=== PATIENT | male | born 1960 | race Caucasian/White ===

== ENCOUNTER 2017-11-09 13:24 | Emergency (ER) | payer MEDICARE, BC ==
[2017-11-09] MEDS ORDERED: CLINDAMYCIN 600MG/50ML PREMIX 600 MG/50 ML BAG IVPB ONE (14:02)
--- NOTE | 2017-11-09 14:07 | Emergency Department Record ---
History of Present Illness - General Chief complaint: Extremity Problem Stated complaint: RT LOWER LEG INFECTION,BLISTERS, RED,SWOLLEN Time Seen by Provider: 11/09/17 14:02 Source: Patient Mode of Arrival: Ambulatory Limitations: No limitations - History of Present Illness Initial comments: 57 yo female presents to ED for evaluation of swelling and redness to the RLE. Patient reports history of DVT, reports that he does not take anticoagulation medications currently. Patient denies fevers, chills, or recent illness. MD Complaint: Extremity swelling Onset/Timin -: Days(s) Location: Right History of Same: Yes Severity scale (1-10): 1 Quality: Aching Consistency: Constant Improves with: Nothing Worsens with: Nothing Associated Symptoms: Rash - Related Data Home Medications Medication Instructions Recorded Confirmed Last Taken Fenofibrate Nanocrystallized 145 mg PO DAILY 11/09/17 11/09/17 1 Day Ago [Fenofibrate] ~11/08/17 Meloxicam [Mobic] 15 mg PO DAILY 11/09/17 11/09/17 1 Day Ago ~11/08/17 Previous Rx's Medication Instructions Recorded Clindamycin HCl 300 mg PO Q6H #40 capsule 11/09/17 Allergies Allergy/AdvReac Type Severity Reaction Status Date / Time Penicillins Allergy HIVES Verified 11/09/17 13:45 Tetanus Vaccines and Toxoid Allergy ANAPHYLAXIS Verified 11/09/17 13:45 [Tetanus Vaccines & Toxoid] Travel Screening - Travel/Exposure Within Last 30 Days Have you traveled within the last 30 days?: No - Travel/Exposure Within Last Year Have you traveled outside the [place] in the last year?: No - Additonal Travel Details Have you been exposed to anyone with a communicable illness?: No - Travel Symptoms Symptom Screening: None Review of Systems Constitutional: Denies: Chills, Fever, Malaise, Night sweats Eyes: Denies: Eye discharge, Eye pain ENT: Denies: Congestion, Ear pain, Epistaxis Respiratory: Denies: Cough, Dyspnea Cardiovascular: Denies: Chest pain, Dyspnea on exertion Endocrine: Denies: Fatigue, Heat or cold intolerance Gastrointestinal: Denies: Abdominal pain, Nausea, Vomiting Genitourinary: Denies: Incontinence, Retention Musculoskeletal: Reports: Myalgia. Denies: Arthralgia, Back pain, Gout, Joint swelling Skin: Reports: Rash. Denies: Bruising, Change in color, Change in hair/nails Neurological: Denies: Abnormal gait, Confusion, Headache, Seizure Psychiatric: Denies: Anxiety Hematological/Lymphatic: Reports: Blood Clots. Denies: Anemia Past Medical History - SOCIAL HISTORY Smoking Status: Current every day smoker Alcohol Use: None Drug Use: None - RESPIRATORY Hx Respiratory Disorders: Yes Hx Sleep Apnea: Yes Hx of CPAP: Yes - CARDIOVASCULAR Hx Cardio Disorders: Yes Hx Chest Pain: Yes (heart cath) Hx Deep Vein Thrombosis: Yes (hx of 2 occurences) Hx Hypertension: Yes Comment:: high cholesterol - NEURO Hx Neuro Disorders: Yes Hx Seizures: Yes ("tremors") - GI Hx GI Disorders: Yes Hx Reflux: Yes Hx Irritable Bowel: Yes - Hx Genitourinary Disorders: No - ENDOCRINE Hx Endocrine Disorders: No - MUSCULOSKELETAL Hx Musculoskeletal Disorders: Yes Hx Arthritis: Yes Hx Back Injury: Yes - PSYCH Hx Psych Problems: No - HEMATOLOGY/ONCOLOGY Hx Hematology/Oncology Disorders: No Family Medical History Any Significant Family History?: Yes Hx Alcohol Use: Father, Grandparents Hx Cancer: Father, Brother/Sister Hx Diabetes: Father, Brother/Sister Hx Heart Disease: Grandparents Hx HTN: Father, Mother, Brother/Sister Hx Kidney Disease: Mother, Brother/Sister Hx Liver Disease: Father Physical Exam - General General Appearance: Alert, Oriented x3, Cooperative Limitations: No limitations - Head Head exam: Atraumatic, Normocephalic, Normal inspection Head exam detail: negative: Abrasion, Contusion, Lay's sign, General tenderness, Hematoma, Laceration - Eye Eye exam: Normal appearance. negative: Conjunctival injection, Periorbital swelling, Periorbital tenderness, Scleral icterus - ENT Ear exam: negative: Auricular hematoma, Auricular trauma Nasal Exam: negative: Active bleeding, Discharge, Dried blood, Foreign body Mouth exam: negative: Drooling, Laceration, Muffled voice, Tongue elevation - Neck Neck exam: Normal inspection. negative: Meningismus, Tenderness - Respiratory Respiratory exam: Normal lung sounds bilaterally. negative: Rales, Respiratory distress, Rhonchi, Stridor - Cardiovascular Cardiovascular Exam: Regular rate, Normal rhythm, Normal heart sounds Peripheral Pulses: 3+: Dorsalis Pedis (R) - GI/Abdominal GI/Abdominal exam: Soft. negative: Rebound, Rigid, Tenderness - Rectal Rectal exam: Deferred - exam: Deferred - Extremities Extremities exam: Tenderness, Other (Diffuse erythema from the ankle to distal thigh is present with edema present, warm to touch). negative: Calf tenderness , Pedal edema - Back Back exam: Denies: CVA tenderness (R), CVA tenderness (L) - Neurological Neurological exam: Alert, Normal gait, Oriented X3 - Psychiatric Psychiatric exam: Normal affect, Normal mood - Skin Skin exam: Erythema, Rash Type of lesion: Rash. negative: abrasion Distribution of rash: RLE Description of rash: Erythematous Course Vital Signs 11/09/17 13:37 Temperature 98.5 F Pulse Rate 64 Respiratory 16 Rate Blood Pressure 148/70 Pulse Ox 95 - Reevaluation(s) Reevaluation #1: 11/09/17 15:11 Labs reviewed, D-Dimer elevated at 0.77, labs are otherwise grossly unremarkable for an acute process. Medical Decision Making - Lab Data Result diagrams: 11/09/17 14:10 11/09/17 14:10 Disposition Disposition: Transfer Clinical Impression: Cellulitis Qualifiers: Site of cellulitis: extremity Site of cellulitis of extremity: lower extremity Laterality: right Qualified Code(s): L03.115 - Cellulitis of right lower limb Disposition: Home, Self-Care Transfer To: [facility] Reason For Transfer: Doppler to exclude DVT Accepting Physician: Jasson Time Discussed w/Accepting Physician: 15:20 Condition: (2) Stable Prescriptions: Clindamycin HCl 300 mg PO Q6H #40 capsule Forms: Patient Portal Access Time of Disposition: 15:21 Quality - Quality Measures Quality Measures: N/A - Blood Pressure Screening Does Patient Have Any of the Following: Active Dx of HTN Blood Pressure Classification: Hypertensive Reading Systolic Measurement: 148 Diastolic Measurement: 70 Screening for High Blood Pressure: Patient Exclusion, Hx of HTN [G9744] First Hypertensive Follow-up Interventions: Referral to alternative/primary care provider.
[2017-11-09] MEDS ORDERED: 0.9 % SODIUM CHLORIDE 1000ML 1,000 ML IV SCH (14:15)
[2017-11-09 14:24] LABS: BASO % 0.8 % (0-6); EOS % 7.4 % (0-6); GRAN % 56.1 % (47-80); HEMATOCRIT 44.9 % (42.0-52.0); HEMOGLOBIN 15.1 gm/dl (14.0-18.0); LYMPH % 27.9 % (16-45); MEAN CELL VOLUME 90.5 fl (81-97); MEAN CORPUSCULAR HEMOGLOBIN 30.4 pg (27-33); MEAN CORPUSCULAR HGB CONC 33.6 g/dl (32-36); MEAN PLATELET VOLUME 10.7 fl (7.4-10.4); MONO % 7.8 % (0-9); PLATELET COUNT 192 K/uL (130-400); RED BLOOD COUNT 4.96 M/uL (4.40-5.70); WHITE BLOOD COUNT W/O DIFF 4.9 K/uL (4.2-12.2)
[2017-11-09 14:37] LABS: BLOOD UREA NITROGEN 16 mg/dL (6-20); EST GLOMERULAR FILTRATION RATE > 60 mL/min
[2017-11-09 14:38] LABS: TOTAL PROTEIN 7.1 g/dL (6.6-8.7)
[2017-11-09 14:40] LABS: GLUCOSE,RANDOM 145 mg/dL (74-109)
[2017-11-09 14:43] LABS: ALB/GLOB RATIO 1.4 (1.1-1.8); ALBUMIN 4.2 g/dL (4.0-5.0); ALKALINE PHOSPHATASE 39 U/L (40-129); ALT/SGPT 21 U/L (<41); AST/SGOT 21 U/L (10.0-50.0)
== END 2017-11-09 15:41 | disposition home or self-care (01) ==
LOC: ER 13:24
DX: L03.115 Cellulitis of right lower limb (principal); R60.0 Localized edema; I10 Essential (primary) hypertension; F17.210 Nicotine dependence, cigarettes, uncomplicated
CPT/HCPCS: 80053; 85025; 85379; 96374; 99284; J7030

== ENCOUNTER 2018-06-07 14:53 | Emergency (ER) | payer MEDICARE, BC ==
[2018-06-07] MEDS ORDERED: ENOXAPARIN 100 MG/ML SYR SQ ONE ×2 (15:41→15:58)
--- NOTE | 2018-06-07 15:41 | Emergency Department Record ---
History of Present Illness - General Chief complaint: Lower Extremity Pain Stated complaint: LT LEG PAIN/DVT? Time Seen by Provider: 06/07/18 15:28 Source: Patient, RN notes reviewed Mode of Arrival: Ambulatory - History of Present Illness Initial comments: patient has two superficial spots on his left lower leg with superficial phlebitis and he wants to be checked for a DVT and he had a DVT once before and is not on anticoag now about 4 years ago. No dyspnea Onset/Timin -: Days(s) Location: Left, Lower Leg Radiation: Proximal, Distal Severity scale (1-10): 4 Quality: Aching, Burning - Related Data Home Medications Medication Instructions Recorded Confirmed Last Taken Metoprolol Succinate [Toprol Xl] 25 mg PO DAILY 06/07/18 06/07/18 1 Day Ago ~06/06/18 Oxycodone HCl/Acetaminophen 1 tab PO Q6H PRN 06/07/18 06/07/18 1 Day Ago [Percocet 10mg/325mg] ~06/06/18 Allergies Allergy/AdvReac Type Severity Reaction Status Date / Time Penicillins Allergy HIVES Verified 06/07/18 15:03 Tetanus Vaccines and Toxoid Allergy ANAPHYLAXIS Verified 06/07/18 15:03 [Tetanus Vaccines & Toxoid] Travel Screening - Travel/Exposure Within Last 30 Days Have you traveled within the last 30 days?: No - Travel/Exposure Within Last Year Have you traveled outside the [place] in the last year?: No - Additonal Travel Details Have you been exposed to anyone with a communicable illness?: No - Travel Symptoms Symptom Screening: None Review of Systems Reviewed: No additional complaints except as noted below Constitutional: Reports: As per HPI. Denies: Chills, Fever, Malaise, Night sweats, Weakness, Weight change Eyes: Reports: As per HPI. Denies: Eye discharge, Eye pain, Photophobia, Vision change ENT: Reports: As per HPI. Denies: Congestion, Dental pain, Ear pain, Epistaxis , Hearing loss, Throat pain Respiratory: Reports: As per HPI. Denies: Cough, Dyspnea, Hemoptysis, Stridor, Wheezes Cardiovascular: Reports: As per HPI. Denies: Arrhythmia, Chest pain, Dyspnea on exertion, Edema, Murmurs, Orthopnea, Palpitations, Paroxysmal nocturnal dyspnea, Rheumatic Fever, Syncope Endocrine: Reports: As per HPI. Denies: Fatigue, Heat or cold intolerance, Polydipsia, Polyuria Gastrointestinal: Reports: As per HPI. Denies: Abdominal pain, Constipation, Diarrhea, Hematemesis, Hematochezia, Melena, Nausea, Vomiting Genitourinary: Reports: As per HPI. Denies: Dysuria, Frequency, Hematuria, Incontinence, Retention, Testicular pain, Testicular mass, Urgency Musculoskeletal: Reports: As per HPI. Denies: Arthralgia, Back pain, Gout, Joint swelling, Myalgia, Neck pain Skin: Reports: As per HPI. Denies: Bruising, Change in color, Change in hair/ nails, Lesions, Pruritus, Rash Neurological: Reports: As per HPI. Denies: Abnormal gait, Confusion, Headache, Numbness, Paresthesias, Seizure, Tingling, Tremors, Vertigo, Weakness Psychiatric: Reports: As per HPI. Denies: Anxiety, Auditory hallucinations, Depression, Homicidal thoughts, Suicidal thoughts, Visual hallucinations Hematological/Lymphatic: Reports: As per HPI. Denies: Anemia, Blood Clots, Easy bleeding, Easy bruising, Swollen glands Past Medical History - SOCIAL HISTORY Smoking Status: Current every day smoker Alcohol Use: None Drug Use: None - RESPIRATORY Hx Respiratory Disorders: Yes Hx Sleep Apnea: Yes Hx of CPAP: Yes - CARDIOVASCULAR Hx Cardio Disorders: Yes Hx Chest Pain: Yes (heart cath) Hx Deep Vein Thrombosis: Yes (hx of 2 occurences) Hx Hypertension: Yes Comment:: high cholesterol - NEURO Hx Neuro Disorders: Yes Hx Seizures: Yes ("tremors") - GI Hx GI Disorders: Yes Hx Reflux: Yes Hx Irritable Bowel: Yes - Hx Genitourinary Disorders: No - ENDOCRINE Hx Endocrine Disorders: No - MUSCULOSKELETAL Hx Musculoskeletal Disorders: Yes Hx Arthritis: Yes Hx Back Injury: Yes - PSYCH Hx Psych Problems: No - HEMATOLOGY/ONCOLOGY Hx Hematology/Oncology Disorders: No Family Medical History Any Significant Family History?: Yes Hx Alcohol Use: Father, Grandparents Hx Cancer: Father, Brother/Sister Hx Diabetes: Father, Brother/Sister Hx Heart Disease: Grandparents Hx HTN: Father, Mother, Brother/Sister Hx Kidney Disease: Mother, Brother/Sister Hx Liver Disease: Father Physical Exam - General General Appearance: Alert, Oriented x3, Cooperative, No acute distress - Head Head exam: Normal inspection - Eye Eye exam: Normal appearance, PERRL Pupils: Normal accommodation - ENT ENT exam: Normal exam, Mucous membranes moist, Normal external ear exam, Normal orophraynx, TM's normal bilaterally Ear exam: Normal external inspection. negative: External canal tenderness Nasal Exam: Normal inspection. negative: Discharge, Sinus tenderness Mouth exam: Normal external inspection, Tongue normal Teeth exam: Normal inspection. negative: Dental caries Throat exam: Normal inspection. negative: Tonsillar erythema, Tonsillar exudate - Neck Neck exam: Normal inspection, Full ROM. negative: Tenderness - Respiratory Respiratory exam: Normal lung sounds bilaterally. negative: Respiratory distress - Cardiovascular Cardiovascular Exam: Regular rate, Normal rhythm, Normal heart sounds - GI/Abdominal GI/Abdominal exam: Soft, Normal bowel sounds. negative: Tenderness - Rectal Rectal exam: Deferred - exam: Deferred - Extremities Extremities exam: Normal inspection, Full ROM, Normal capillary refill. negative: Tenderness - Back Back exam: Reports: Normal inspection, Full ROM. Denies: Muscle spasm, Rash noted, Tenderness - Neurological Neurological exam: Alert, Normal gait, Oriented X3, Reflexes normal - Psychiatric Psychiatric exam: Normal affect, Normal mood - Skin Skin exam: Dry, Intact, Normal color, Warm Course Vital Signs 06/07/18 14:56 Temperature 98.1 F Pulse Rate 67 Respiratory 16 Rate Blood Pressure 139/78 Pulse Ox 96 Medical Decision Making - Lab Data Result diagrams: 06/07/18 15:45 06/07/18 15:45 Disposition Clinical Impression: Phlebitis, superficial Disposition: Home, Self-Care Condition: (1) Good Instructions: Superficial Thrombophlebitis (ED) Additional Instructions: elevate leg knee high support socks stop meloxicam take motrin 400 mg OTC three times a day return tomorrow for a venous dopler throught the ED Forms: Patient Portal Access Time of Disposition: 15:51 Quality - Quality Measures Quality Measures: N/A - Blood Pressure Screening Does Patient Have Any of the Following: No Blood Pressure Classification: Pre-Hypertensive BP Reading Systolic Measurement: 139 Diastolic Measurement: 78 Screening for High Blood Pressure: < Pre-Hypertensive BP, F/U Documented > [ G8950] Pre-Hypertensive Follow-up Interventions: Referral to alternative/primary care provider.
[2018-06-07 16:02] LABS: BASO % 0.4 % (0-6); EOS % 2.3 % (0-6); GRAN % 68.5 % (47-80); HEMATOCRIT 46.3 % (42.0-52.0); HEMOGLOBIN 15.8 gm/dl (14.0-18.0); LYMPH % 20.9 % (16-45); MEAN CELL VOLUME 91.3 fl (81-97); MEAN CORPUSCULAR HEMOGLOBIN 31.2 pg (27-33); MEAN CORPUSCULAR HGB CONC 34.1 g/dl (32-36); MEAN PLATELET VOLUME 10.7 fl (7.4-10.4); MONO % 7.9 % (0-9); PLATELET COUNT 166 K/uL (130-400); RED BLOOD COUNT 5.07 M/uL (4.40-5.70); RED CELL DISTRIBUTION WIDTH 13.1 % (11.5-14.5); WHITE BLOOD COUNT W/O DIFF 7.4 K/uL (4.2-12.2)
[2018-06-07 16:07] LABS: BLOOD UREA NITROGEN 16 mg/dL (6-20); CREATININE 0.9 mg/dL (0.7-1.2); EST GLOMERULAR FILTRATION RATE > 60 mL/min
[2018-06-07 16:10] LABS: GLUCOSE,RANDOM 123 mg/dL (74-109)
[2018-06-07 16:11] LABS: PARTIAL THROMBOPLASTIN TIME 26.1 SECONDS (24.5-39.1); PROTHROMBIN TIME (PATIENT) 11.1 SECONDS (9.5-12.1)
== END 2018-06-07 16:24 | disposition home or self-care (01) ==
LOC: ER 14:53
DX: I82.812 Embolism and thrombosis of superficial veins of left lower extremity (principal); E78.00 Pure hypercholesterolemia, unspecified; Z86.718 Personal history of other venous thrombosis and embolism; F17.210 Nicotine dependence, cigarettes, uncomplicated; I10 Essential (primary) hypertension
CPT/HCPCS: 80048; 85025; 85610; 85730; 96372; 99283; J1650

== ENCOUNTER 2018-06-08 07:35 | Emergency (ER) | payer MEDICARE, BC ==
--- NOTE | 2018-06-08 08:55 | Emergency Department Record ---
History of Present Illness - General Chief complaint: Lower Extremity Pain Stated complaint: ULTRASOUND Time Seen by Provider: 06/08/18 07:47 Source: Patient, RN notes reviewed Mode of Arrival: Ambulatory - History of Present Illness Initial comments: patient returned as a scheduled ED visit to obtain a venous doppler of the leg because service not available on the weekends. leg looks better. Onset/Timin -: Days(s) Location: Left, Lower Leg Severity scale (1-10): 2 Quality: Burning Improves with: Rest Worsens with: Palpation, Walking, Weight bearing - Related Data Allergies Allergy/AdvReac Type Severity Reaction Status Date / Time Penicillins Allergy HIVES Verified 06/07/18 15:03 Tetanus Vaccines and Toxoid Allergy ANAPHYLAXIS Verified 06/07/18 15:03 [Tetanus Vaccines & Toxoid] Travel Screening - Travel/Exposure Within Last 30 Days Have you traveled within the last 30 days?: No - Travel Symptoms Symptom Screening: None Review of Systems Reviewed: No additional complaints except as noted below Constitutional: Reports: As per HPI. Denies: Chills, Fever, Malaise, Night sweats, Weakness, Weight change Eyes: Reports: As per HPI. Denies: Eye discharge, Eye pain, Photophobia, Vision change ENT: Reports: As per HPI. Denies: Congestion, Dental pain, Ear pain, Epistaxis , Hearing loss, Throat pain Respiratory: Reports: As per HPI. Denies: Cough, Dyspnea, Hemoptysis, Stridor, Wheezes Cardiovascular: Reports: As per HPI. Denies: Arrhythmia, Chest pain, Dyspnea on exertion, Edema, Murmurs, Orthopnea, Palpitations, Paroxysmal nocturnal dyspnea, Rheumatic Fever, Syncope Endocrine: Reports: As per HPI. Denies: Fatigue, Heat or cold intolerance, Polydipsia, Polyuria Gastrointestinal: Reports: As per HPI. Denies: Abdominal pain, Constipation, Diarrhea, Hematemesis, Hematochezia, Melena, Nausea, Vomiting Genitourinary: Reports: As per HPI. Denies: Dysuria, Frequency, Hematuria, Incontinence, Retention, Testicular pain, Testicular mass, Urgency Musculoskeletal: Reports: As per HPI. Denies: Arthralgia, Back pain, Gout, Joint swelling, Myalgia, Neck pain Skin: Reports: As per HPI. Denies: Bruising, Change in color, Change in hair/ nails, Lesions, Pruritus, Rash Neurological: Reports: As per HPI. Denies: Abnormal gait, Confusion, Headache, Numbness, Paresthesias, Seizure, Tingling, Tremors, Vertigo, Weakness Psychiatric: Reports: As per HPI. Denies: Anxiety, Auditory hallucinations, Depression, Homicidal thoughts, Suicidal thoughts, Visual hallucinations Hematological/Lymphatic: Reports: As per HPI. Denies: Anemia, Blood Clots, Easy bleeding, Easy bruising, Swollen glands Past Medical History - SOCIAL HISTORY Smoking Status: Current every day smoker - RESPIRATORY Hx Respiratory Disorders: Yes Hx Sleep Apnea: Yes Hx of CPAP: Yes - CARDIOVASCULAR Hx Cardio Disorders: Yes Hx Chest Pain: Yes (heart cath) Hx Deep Vein Thrombosis: Yes (hx of 2 occurences) Hx Hypertension: Yes Comment:: high cholesterol - NEURO Hx Neuro Disorders: Yes Hx Seizures: Yes ("tremors") - GI Hx GI Disorders: Yes Hx Reflux: Yes Hx Irritable Bowel: Yes - Hx Genitourinary Disorders: No - ENDOCRINE Hx Endocrine Disorders: No - MUSCULOSKELETAL Hx Musculoskeletal Disorders: Yes Hx Arthritis: Yes Hx Back Injury: Yes - PSYCH Hx Psych Problems: No - HEMATOLOGY/ONCOLOGY Hx Hematology/Oncology Disorders: No Family Medical History Any Significant Family History?: Yes Hx Alcohol Use: Father, Grandparents Hx Cancer: Father, Brother/Sister Hx Diabetes: Father, Brother/Sister Hx Heart Disease: Grandparents Hx HTN: Father, Mother, Brother/Sister Hx Kidney Disease: Mother, Brother/Sister Hx Liver Disease: Father Physical Exam - General General Appearance: Alert, Oriented x3, Cooperative, No acute distress - Head Head exam: Normal inspection - Eye Eye exam: Normal appearance, PERRL Pupils: Normal accommodation - ENT ENT exam: Normal exam, Mucous membranes moist, Normal external ear exam, Normal orophraynx, TM's normal bilaterally Ear exam: Normal external inspection. negative: External canal tenderness Nasal Exam: Normal inspection. negative: Discharge, Sinus tenderness Mouth exam: Normal external inspection, Tongue normal Teeth exam: Normal inspection. negative: Dental caries Throat exam: Normal inspection. negative: Tonsillar erythema, Tonsillar exudate - Neck Neck exam: Normal inspection, Full ROM. negative: Tenderness - Respiratory Respiratory exam: Normal lung sounds bilaterally. negative: Respiratory distress - Cardiovascular Cardiovascular Exam: Regular rate, Normal rhythm, Normal heart sounds - GI/Abdominal GI/Abdominal exam: Soft, Normal bowel sounds. negative: Tenderness - Rectal Rectal exam: Deferred - exam: Deferred - Extremities Extremities exam: Normal inspection, Full ROM, Normal capillary refill, Other ( redness and swelling better,). negative: Tenderness - Back Back exam: Reports: Normal inspection, Full ROM. Denies: Muscle spasm, Rash noted, Tenderness - Neurological Neurological exam: Alert, Normal gait, Oriented X3, Reflexes normal - Psychiatric Psychiatric exam: Normal affect, Normal mood - Skin Skin exam: Dry, Intact, Normal color, Warm Course Vital Signs 06/08/18 07:41 Temperature 98.5 F Pulse Rate 75 Respiratory 20 Rate Blood Pressure 138/77 Pulse Ox 97 Medical Decision Making - Data Complexity MDM Data: X-Ray Ordered and/or Reviewed (preliminary report No DVT) Disposition Clinical Impression: Phlebitis, superficial Disposition: Home, Self-Care Condition: (1) Good Instructions: Superficial Thrombophlebitis (ED) Additional Instructions: follow up with family in one week. use motrin 400 mg three times a day for one week and than go back on mobic Stop mobic while on motrin Forms: Patient Portal Access Time of Disposition: 10:06 Quality - Quality Measures Quality Measures: N/A - Blood Pressure Screening Does Patient Have Any of the Following: No Blood Pressure Classification: Pre-Hypertensive BP Reading Systolic Measurement: 138 Diastolic Measurement: 77 Screening for High Blood Pressure: < Pre-Hypertensive BP, F/U Documented > [ G8950] Pre-Hypertensive Follow-up Interventions: Referral to alternative/primary care provider.
--- NOTE | 2018-06-09 12:55 | US VENOUS DOPPLER REPORT ---
EXAM: EMERGENCY VENOUS DOPPLER ULTRASOUND OF THE LEFT LOWER EXTREMITY HISTORY: REDNESS AND SWELLING LEFT LEG, HISTORY OF DVT TEN YEARS AGO, POSSIBLE DVT CURRENTLY. TECHNIQUE: Emergency venous Doppler ultrasound of the left lower extremity was performed utilizing color flow and spectral analysis. Routine venous anatomy evaluated from the common femoral vein in the left inguinal region down through the calf. Compression and flow augmentation maneuvers were utilized as well. Comparison: No prior venous Doppler ultrasound with which to compare. FINDINGS: The venous Doppler ultrasound of the left lower extremity is negative. Flow is seen throughout the deep venous system of the left lower extremity with color flow and spectral analysis, with no DVT identified. Compression and flow augmentation was evident as well. IMPRESSION: NEGATIVE VENOUS DOPPLER ULTRASOUND OF THE LEFT LOWER EXTREMITY WITH NO DVT IDENTIFIED. JOB NUMBER: [id number] [facility]
== END 2018-06-08 10:17 | disposition home or self-care (01) ==
LOC: ER 07:35
DX: I82.812 Embolism and thrombosis of superficial veins of left lower extremity (principal); E78.00 Pure hypercholesterolemia, unspecified; I10 Essential (primary) hypertension; Z86.718 Personal history of other venous thrombosis and embolism; F17.210 Nicotine dependence, cigarettes, uncomplicated
CPT/HCPCS: 99282

== ENCOUNTER 2019-02-08 20:02 | Emergency (ER) | payer MEDICARE, BC ==
--- NOTE | 2019-02-08 20:18 | Emergency Department Record ---
History of Present Illness - General Chief complaint: Jaw Swelling Stated complaint: PAIN IN L JAW, CHEEK AROUND EYE Time Seen by Provider: 02/08/19 20:04 Source: Patient Mode of Arrival: Ambulatory Limitations: No limitations - History of Present Illness Initial comments: 58 yo male presents to ED for evaluation of left sided facial pain and mild swelling that began 1 week ago. Patient was started on Cefdinir 4 days ago, reports that the antibiotics initially improved his symptoms however his pain symptoms to the left cheek region have worsened. Patient describes "pressure" to the sinus area. Patient denies fevers, chills, or sore throat symptoms. Patient denies pain with salvation or pain over the parotid gland. Patient has taken his home pain medications for his symptoms with some improvement. MD complaint: Tooth pain Onset/Timin -: Week(s) Severity: Severe Quality: Aching Consistency: Constant Improves with: None Worsens with: None - Related Data Home Medications Medication Instructions Recorded Confirmed Last Taken Cefdinir [Omnicef] 300 mg PO BID 02/08/19 02/08/19 Unknown Previous Rx's Medication Instructions Recorded Amoxicillin/Potassium Clav 1 each PO BID #19 tablet 02/08/19 [Augmentin 875Mg/125Mg] Allergies Allergy/AdvReac Type Severity Reaction Status Date / Time Penicillins Allergy HIVES Verified 02/08/19 20:09 Tetanus Vaccines and Toxoid Allergy ANAPHYLAXIS Verified 02/08/19 20:09 [Tetanus Vaccines & Toxoid] Review of Systems Constitutional: Denies: Chills, Fever, Malaise, Night sweats Eyes: Denies: Eye discharge, Eye pain ENT: Reports: Dental pain. Denies: Congestion, Ear pain, Epistaxis Respiratory: Denies: Cough, Dyspnea Cardiovascular: Denies: Chest pain, Dyspnea on exertion Endocrine: Denies: Fatigue, Heat or cold intolerance Gastrointestinal: Denies: Abdominal pain, Nausea, Vomiting Genitourinary: Denies: Incontinence, Retention Musculoskeletal: Denies: Arthralgia, Back pain Skin: Denies: Bruising, Change in color Neurological: Denies: Abnormal gait, Confusion, Headache, Seizure Psychiatric: Denies: Anxiety Hematological/Lymphatic: Denies: Anemia, Blood Clots Past Medical History - SOCIAL HISTORY Smoking Status: Current every day smoker - RESPIRATORY Hx Respiratory Disorders: Yes Hx Sleep Apnea: Yes Hx of CPAP: Yes - CARDIOVASCULAR Hx Cardio Disorders: Yes Hx Chest Pain: Yes (heart cath) Hx Deep Vein Thrombosis: Yes (hx of 2 occurences) Hx Hypertension: Yes Comment:: high cholesterol - NEURO Hx Neuro Disorders: Yes Hx Seizures: Yes ("tremors") - GI Hx GI Disorders: Yes Hx Reflux: Yes Hx Irritable Bowel: Yes - Hx Genitourinary Disorders: No - ENDOCRINE Hx Endocrine Disorders: No - MUSCULOSKELETAL Hx Musculoskeletal Disorders: Yes Hx Arthritis: Yes Hx Back Injury: Yes - PSYCH Hx Psych Problems: No - HEMATOLOGY/ONCOLOGY Hx Hematology/Oncology Disorders: No Family Medical History Hx Alcohol Use: Father, Grandparents Hx Cancer: Father, Brother/Sister Hx Diabetes: Father, Brother/Sister Hx Heart Disease: Grandparents Hx HTN: Father, Mother, Brother/Sister Hx Kidney Disease: Mother, Brother/Sister Hx Liver Disease: Father Physical Exam - General General Appearance: Alert, Oriented x3, Cooperative, Mild distress Limitations: No limitations - Head Head exam: Atraumatic, Normocephalic, Normal inspection Head exam detail: negative: Abrasion, Contusion, Lay's sign, General tenderness, Hematoma, Laceration - Eye Eye exam: Normal appearance. negative: Conjunctival injection, Periorbital swelling, Periorbital tenderness, Scleral icterus - ENT Ear exam: negative: Auricular hematoma, Auricular trauma Nasal Exam: negative: Active bleeding, Discharge, Dried blood, Foreign body Mouth exam: negative: Drooling, Laceration, Muffled voice, Tongue elevation Teeth exam: Dental tenderness # Throat exam: negative: Tonsillar erythema, R peritonsillar mass, L peritonsillar mass - Neck Neck exam: Normal inspection. negative: Meningismus, Tenderness - Respiratory Respiratory exam: Normal lung sounds bilaterally. negative: Rales, Respiratory distress, Rhonchi, Stridor - Cardiovascular Cardiovascular Exam: Regular rate, Normal rhythm, Normal heart sounds - GI/Abdominal GI/Abdominal exam: Soft. negative: Rebound, Rigid, Tenderness - Rectal Rectal exam: Deferred - exam: Deferred - Extremities Extremities exam: Normal inspection. negative: Pedal edema, Tenderness - Back Back exam: Denies: CVA tenderness (R), CVA tenderness (L) - Neurological Neurological exam: Alert, Normal gait, Oriented X3 - Psychiatric Psychiatric exam: Normal affect, Normal mood - Skin Skin exam: Normal color. negative: Abrasion Type of lesion: negative: abrasion Course - Reevaluation(s) Reevaluation #1: 02/08/19 20:57 Laboratory studies were reviewed and are grossly unremarkable for an acute process. Reevaluation #2: 02/08/19 22:09 CT Soft-Tissue Neck: Prominence of the left maxillary sinus Moderate left ethmoid sinus Dental caries upper left oral cavity Stenosis C6-C7 Patient was updated on all results, will initiate treatment with Augmentin ( patient reports taking Amoxicillin without problems) Patient was encouraged to follow-up with his dentist in 1-3 days as directed. Medical Decision Making - Lab Data Result diagrams: 02/08/19 20:25 02/08/19 20:25 Disposition Disposition: Discharge Clinical Impression: Dental caries Disposition: Home, Self-Care Condition: (2) Stable Instructions: Dental Abscess (ED) Additional Instructions: Return to ED if your symptoms worsen or if you have any concerns. Augmentin as directed. Follow-up with your dentist in 1-3 days as directed. Prescriptions: Amoxicillin/Potassium Clav [Augmentin 875Mg/125Mg] 1 each PO BID #19 tablet Forms: Patient Portal Access Time of Disposition: 22:13 Quality - Quality Measures Quality Measures: N/A - Blood Pressure Screening Does Patient Have Any of the Following: No Blood Pressure Classification: Pre-Hypertensive BP Reading Systolic Measurement: 175 Diastolic Measurement: 81 Screening for High Blood Pressure: < Pre-Hypertensive BP, F/U Documented > [ G8950] Pre-Hypertensive Follow-up Interventions: Referral to alternative/primary care provider.
[2019-02-08 20:31] LABS: BASO % 0.6 % (0-6); EOS % 4.6 % (0-6); GRAN % 59.2 % (47-80); HEMATOCRIT 46.2 % (42.0-52.0); HEMOGLOBIN 15.5 gm/dl (14.0-18.0); LYMPH % 26.9 % (16-45); MEAN CELL VOLUME 89.9 fl (81-97); MEAN CORPUSCULAR HEMOGLOBIN 30.2 pg (27-33); MEAN CORPUSCULAR HGB CONC 33.5 g/dl (32-36); MEAN PLATELET VOLUME 10.8 fl (7.4-10.4); MONO % 8.7 % (0-9); PLATELET COUNT 202 K/uL (130-400); RED BLOOD COUNT 5.14 M/uL (4.40-5.70); RED CELL DISTRIBUTION WIDTH 12.9 % (11.5-14.5); WHITE BLOOD COUNT W/O DIFF 6.3 K/uL (4.2-12.2)
[2019-02-08 20:46] LABS: BLOOD UREA NITROGEN 16 mg/dL (6-20); EST GLOMERULAR FILTRATION RATE > 60 mL/min
[2019-02-08 20:47] LABS: TOTAL PROTEIN 7.3 g/dL (6.6-8.7)
[2019-02-08 20:49] LABS: GLUCOSE,RANDOM 172 mg/dL (74-109)
[2019-02-08 20:51] LABS: ALB/GLOB RATIO 1.4 (1.1-1.8); ALBUMIN 4.2 g/dL (4.0-5.0); ALKALINE PHOSPHATASE 39 U/L (40-129); ALT/SGPT 18 U/L (<41); AST/SGOT 15 U/L (10.0-50.0)
[2019-02-08] MEDS ORDERED: HYDROMORPHONE HCL 2 MG/ML VIAL IVP ONE (21:25)
[2019-02-08] MEDS ORDERED: AMOXICILLIN/POTASSIUM CLAV 875MG/125MG TABLET PO ONE (22:04)
--- NOTE | 2019-02-10 10:49 | CT SCAN REPORT ---
EXAM: CT OF THE NECK WITH CONTRAST HISTORY: RIGHT SIDED FACE PAIN, NECK PAIN, SWELLING. TECHNIQUE: Axial CT scan of the neck was performed following IV contrast. Please see the medical record for IV contrast specifics. Comparison: No prior neck CT with which to compare. FINDINGS: Mild to moderate membrane thickening in the left ethmoid sinus, mild on the right. Prominent membrane thickening inferiorly in the left maxillary sinus. The lung apices appear clear. No abnormal air collection seen within either visualized orbit. Artifact from the patient's metallic dental work at the level of the oropharynx. No definite parotid or submandibular gland mass evident. No definite thyroid nodule seen. No superior mediastinal adenopathy evident. Some mildly prominent cervical nodes are seen bilaterally which are probably reactive. There are fairly extensive dental caries present and dental consultation is suggested. Prominent ligamentous calcification posteriorly in the neck. Multilevel degenerative change in the cervical and visualized thoracic spine. The epiglottis is of normal size. No prevertebral soft tissue swelling evident. There is spinal stenosis particularly at the C6-C7 level. There is a suggestion of some asymmetry in the region of the roof of the mouth along the left side of the oral cavity adjacent to the left maxilla. This area is partially obscured by the extensive metallic dental work artifact and correlation with physical exam is suggested. IMPRESSION: 1. PROMINENT MEMBRANE THICKENING INFERIORLY IN THE LEFT FRONTAL SINUS. MODERATE MEMBRANE THICKENING IN THE LEFT ETHMOID SINUS. 2. FAIRLY EXTENSIVE DENTAL CARIES. THERE MAY BE SOME SOFT TISSUE SWELLING ALONG THE ROOF OF THE MOUTH IN THE ORAL CAVITY ON THE LEFT ADJACENT TO THE LEFT MAXILLA AND CORRELATION WITH PHYSICAL EXAM SUGGESTED. THIS AREA IS PARTIALLY OBSCURED BY EXTENSIVE METALLIC DENTAL WORK ARTIFACT. 3. SOME MILDLY PROMINENT CERVICAL NODES ARE PROBABLY REACTIVE. 4. MULTILEVEL DEGENERATIVE CHANGE IN THE CERVICAL SPINE WITH SPINAL STENOSIS AT THE C6-C7 LEVEL IN PARTICULAR. 5. OTHER FINDINGS NOTED ABOVE. JOB NUMBER: [id number] [facility]
== END 2019-02-08 22:34 | disposition home or self-care (01) ==
LOC: ER 20:02
DX: K02.9 Dental caries, unspecified (principal); R51 Headache; J34.89 Other specified disorders of nose and nasal sinuses; R68.84 Jaw pain; I10 Essential (primary) hypertension; F17.210 Nicotine dependence, cigarettes, uncomplicated
CPT/HCPCS: 70491; 80053; 85025; 96374; 99284

== ENCOUNTER 2019-06-29 16:02 | Emergency (ER) | payer MEDICARE, BC ==
--- NOTE | 2019-06-29 17:02 | Emergency Department Record ---
History of Present Illness - General Chief complaint: Fall Injury Stated complaint: CANT SLEEP X3 DAYS/FALL X2,BODY ACHES Time Seen by Provider: 06/29/19 16:52 Source: Patient Mode of Arrival: Ambulatory Limitations: No limitations - History of Present Illness Initial comments: 59 yo male presents with weakness, tired but unable to sleep more than an hour for the last 3-4 days. He called his PCP's office and was directed to the ED. He states he chronically only sleep 4-5 hours a night but this is worse. No fever. No cough. He has fibromyalgia with a total body pins and needles feeling all the time. No rash. No vision changes. The fibromyalgia now is worse with him not sleeping. MD Complaint: Generalized weakness -: Days(s) (4) Location: Generalized Severity: Moderate Quality: Other (tired but unable to sleep) Consistency: Constant Improves with: None Worsens with: None Context: History of similar - Ana Coma Scale Eye Response: (4) Open spontaneously Motor Response: (6) Obeys commands Verbal Response: (5) Oriented Ana Total: 15 - Related Data Home Medications Medication Instructions Recorded Confirmed Last Taken Metformin HCl [Metformin HCl ER] 500 mg PO DAILY 06/29/19 06/29/19 Unknown Allergies Allergy/AdvReac Type Severity Reaction Status Date / Time Penicillins Allergy HIVES Verified 02/08/19 20:09 Tetanus Vaccines and Toxoid Allergy ANAPHYLAXIS Verified 02/08/19 20:09 [Tetanus Vaccines & Toxoid] Review of Systems Constitutional: Denies: Chills, Fever, Malaise, Weakness Eyes: Denies: Eye discharge ENT: Denies: Congestion, Throat pain Respiratory: Denies: Cough, Dyspnea Cardiovascular: Denies: Chest pain, Syncope Endocrine: Denies: Fatigue, Polydipsia, Polyuria Gastrointestinal: Denies: Abdominal pain, Diarrhea, Nausea, Vomiting Genitourinary: Denies: Dysuria, Frequency, Hematuria Musculoskeletal: Reports: Myalgia. Denies: Arthralgia, Back pain Skin: Denies: Bruising, Change in color, Rash Neurological: Reports: Weakness. Denies: Abnormal gait, Confusion, Headache, Numbness, Seizure Psychiatric: Denies: Anxiety Hematological/Lymphatic: Denies: Blood Clots, Easy bleeding, Easy bruising, Swollen glands Past Medical History - SOCIAL HISTORY Smoking Status: Current every day smoker - RESPIRATORY Hx Respiratory Disorders: Yes Hx Sleep Apnea: Yes Hx of CPAP: Yes - CARDIOVASCULAR Hx Cardio Disorders: Yes Hx Chest Pain: Yes (heart cath) Hx Deep Vein Thrombosis: Yes (hx of 2 occurences) Hx Hypertension: Yes Comment:: high cholesterol - NEURO Hx Neuro Disorders: Yes Hx Seizures: Yes ("tremors") - GI Hx GI Disorders: Yes Hx Reflux: Yes Hx Irritable Bowel: Yes - Hx Genitourinary Disorders: No - ENDOCRINE Hx Endocrine Disorders: No - MUSCULOSKELETAL Hx Musculoskeletal Disorders: Yes Hx Arthritis: Yes Hx Back Injury: Yes - PSYCH Hx Psych Problems: No - HEMATOLOGY/ONCOLOGY Hx Hematology/Oncology Disorders: No Family Medical History Hx Alcohol Use: Father, Grandparents Hx Cancer: Father, Brother/Sister Hx Diabetes: Father, Brother/Sister Hx Heart Disease: Grandparents Hx HTN: Father, Mother, Brother/Sister Hx Kidney Disease: Mother, Brother/Sister Hx Liver Disease: Father Physical Exam - General General Appearance: Alert, Oriented x3, Cooperative, No acute distress Limitations: No limitations - Head Head exam: Atraumatic, Normal inspection - Eye Eye exam: Normal appearance, PERRL. negative: Conjunctival injection, Scleral icterus - ENT ENT exam: Normal exam, Mucous membranes moist Ear exam: Normal external inspection Nasal Exam: Normal inspection Mouth exam: Normal external inspection Teeth exam: Normal inspection Throat exam: Normal inspection - Neck Neck exam: Normal inspection. negative: Lymphadenopathy, Thyromegaly - Respiratory Respiratory exam: Normal lung sounds bilaterally. negative: Respiratory dis tress, Rhonchi, Stridor, Wheezes - Cardiovascular Cardiovascular Exam: Regular rate, Normal rhythm, Normal heart sounds Peripheral Pulses: 2+: Radial (R), Radial (L) - GI/Abdominal GI/Abdominal exam: Soft - Rectal Rectal exam: Deferred - exam: Deferred - Extremities Extremities exam: Normal inspection. negative: Calf tenderness, Pedal edema, Tenderness - Back Back exam: Denies: CVA tenderness (R), CVA tenderness (L) - Neurological Neurological exam: Alert, CN II-XII intact. negative: Altered, Oriented X3 - Psychiatric Psychiatric exam: Normal affect, Normal mood - Skin Skin exam: Dry, Intact, Normal color, Warm Course - Reevaluation(s) Reevaluation #1: 06/29/19 18:30 No acute findings on the lab work up The patient examination is unremarkable for acute abnormalities He is on medications that could have side effects with certain sleep aides. I encourage him to call his PCP to discuss safe medications. Medical Decision Making - Lab Data Result diagrams: 06/29/19 17:10 06/29/19 17:10 Disposition Disposition: Discharge Clinical Impression: Insomnia Qualifiers: Insomnia type: unspecified Qualified Code(s): G47.00 - Insomnia, unspecified Disposition: Home, Self-Care Condition: (1) Good Instructions: Insomnia (ED) Additional Instructions: Review this ER visit and the tests performed with your family doctor Call your family doctor for advice on sleep aides that will not interact with your medications Consider Benadryl 25mg prior to bedtime or Melatonin Forms: Patient Portal Access Time of Disposition: 18:18 Quality - Quality Measures Quality Measures: N/A - Blood Pressure Screening Does Patient Have Any of the Following: No Blood Pressure Classification: Pre-Hypertensive BP Reading Systolic Measurement: 129 Diastolic Measurement: 80 Screening for High Blood Pressure: < Pre-Hypertensive BP, F/U Documented > [G8950] Pre-Hypertensive Follow-up Interventions: Referral to alternative/primary care provider.
[2019-06-29 17:22] LABS: ABSOLUTE NEUTROPHIL COUNT 5.97; HEMOGLOBIN 16.2 gm/dl (14.0-18.0); MEAN CELL VOLUME 89.2 fl (81-97); MEAN CORPUSCULAR HEMOGLOBIN 30.7 pg (27-33); MEAN CORPUSCULAR HGB CONC 34.5 g/dl (32-36); PLATELET COUNT 221 K/uL (130-400); RED BLOOD COUNT 5.27 M/uL (4.40-5.70); RED CELL DISTRIBUTION WIDTH 13.1 % (11.5-14.5); WHITE BLOOD COUNT W/O DIFF 8.6 K/uL (4.2-12.2)
[2019-06-29 17:29] LABS: BLOOD UREA NITROGEN 12 mg/dL (6-20)
[2019-06-29 17:30] LABS: CREATININE 1.1 mg/dL (0.7-1.2); EST GLOMERULAR FILTRATION RATE > 60 mL/min; TOTAL PROTEIN 7.2 g/dL (6.6-8.7)
[2019-06-29 17:32] LABS: GLUCOSE,RANDOM 141 mg/dL (74-109)
[2019-06-29 17:35] LABS: ALB/GLOB RATIO 1.6 (1.1-1.8); ALBUMIN 4.4 g/dL (4.0-5.0); ALKALINE PHOSPHATASE 40 U/L (40-129); ALT/SGPT 24 U/L (<41); AST/SGOT 20 U/L (10.0-50.0)
[2019-06-29 17:46] LABS: THYROID STIMULATING HORMONE 0.65 uIU/mL (0.270-4.20)
[2019-06-29 17:55] LABS: PLATELET ESTIMATE NORMAL (NORMAL)
== END 2019-06-29 18:45 | disposition home or self-care (01) ==
LOC: ER 16:02
DX: G47.00 Insomnia, unspecified (principal); R53.1 Weakness; M79.7 Fibromyalgia; I10 Essential (primary) hypertension; F17.210 Nicotine dependence, cigarettes, uncomplicated; Z91.81 History of falling
CPT/HCPCS: 80053; 84443; 85027; 99284